=== PATIENT | male | born 1975 | race Caucasian/White ===

== ENCOUNTER 2017-06-17 13:17 | Inpatient (IN) | payer OTHER ==
[~2017-06-17] VITALS: Ht 172.7 cm; Wt 99.5 kg
[~2017-06-17 13:17] MED LIST: 1-ME1LIQ PO; ASPI325T PO; CIAL10TA PO; CO Q60CA2 PO; CYCL-36 PO; DICL1GEL TOP; DIOV320T PO; GABA300C3 PO; METH750T2 PO; PERC5TAB12 PO; PERC7.5T13 PO; PREDPOW70 PO; TAB-TAB PO; TACR0.5 PO; TEST200I13 IM; VIAG100T PO
[2017-06-17 13:18] VITALS: BP 218/95; PULSE 109; RESP 20; TEMP 99; O2SAT 95
[2017-06-17] MEDS ORDERED: SODIUM CHLOR 0.9% 1000 ML INJ 1,000 ML IV SCH ×2 (13:51→16:39)
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
[2017-06-17] MEDS ORDERED: ONDANSETRON HCL 4 MG/2 ML VIAL IVP ONE (14:00)
[2017-06-17] MEDS ORDERED: MORPHINE SULFATE 4 MG/ML INJ IV PUSH ONE (14:00)
[2017-06-17] MEDS ORDERED: SODIUM CHLORIDE 0.9% FLUSH 10 ML FLUSH IV FLUSH PRN ×3 (14:00→19:15)
[2017-06-17 14:12] VITALS: RESP 16; O2SAT 98
[2017-06-17] MEDS ORDERED: PRED5TAB PO (14:13)
[2017-06-17] MEDS ORDERED: VALS1TAB70 PO (14:13)
[2017-06-17] MEDS ORDERED: AMLO10TA2 PO (14:13)
[2017-06-17] MEDS ORDERED: TACR1CAP PO (14:13)
[2017-06-17] MEDS ORDERED: LORazepam 2 MG/ML VIAL IV PUSH ONE (14:15)
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
[2017-06-17 14:56] LABS: BASOPHIL % 0.2 % (0.0-2.0); EOSINOPHIL # 0.1 TH/MM3 (0-0.4); EOSINOPHIL % 0.7 % (0.0-4.0); HEMATOCRIT 44.2 % (39.0-51.0); HEMO FLAGS DIFF FINAL; LYMPH % 9.9 % (9.0-44.0); LYMPHOCYTE # 1.7 TH/MM3 (1.0-4.8); MEAN CELL VOLUME 84.7 FL (80.0-100.0); MEAN CORPUSCULAR HEMOGLOBIN 30.3 PG (27.0-34.0); MEAN CORPUSCULAR HGB CONC 35.7 % (32.0-36.0); MONO % 6.8 % (0.0-8.0); NEUT % 82.4 % (16.0-70.0); PLATELET COUNT 364 TH/MM3 (150-450); RED BLOOD COUNT 5.21 MIL/MM3 (4.50-5.90); RED CELL DISTRIBUTION WIDTH 14.4 % (11.6-17.2); WHITE BLOOD COUNT 16.9 TH/MM3 (4.0-11.0)
[2017-06-17 15:21] LABS: APTT (PATIENT) 25.7 SEC (24.3-30.1); PROTHROMBIN TIME - PATIENT 10.7 SEC (9.8-11.6)
[2017-06-17 15:41] LABS: BICARBONATE 25.3 MEQ/L (21.0-32.0)
[2017-06-17 15:42] LABS: POTASSIUM 5.3 MEQ/L (3.5-5.1)
[2017-06-17] MEDS ORDERED: oxyCODONE/ACETAMINOPHEN 10 MG/325 MG TAB PO ONE (15:45)
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
[2017-06-17 15:58] LABS: CKMB 19.9 NG/ML (0.5-3.6)
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
[2017-06-17 18:02] LABS: BLOOD, URINE MOD (NEG); COMMENT (UR) CULT NOT INDICATED; CULTURE IF INDICATED CULT NOT INDICATED; GLUCOSE,URINE NEG (NEG); KETONE, URINE NEG (NEG); NITRITE,URINE NEG (NEG); URINE COLOR LIGHT-YELLOW (YELLW/STRAW)
[2017-06-17] MEDS ORDERED: MAGNESIUM HYDROXIDE SUSP 30 ML CUP PO PRN (19:15)
[2017-06-17] MEDS ORDERED: BISACODYL 10 MG SUPP RECTAL PRN (19:15)
[2017-06-17] MEDS ORDERED: SENNOSIDES 8.6 MG TAB PO PRN (19:15)
[2017-06-17] MEDS ORDERED: ONDANSETRON HCL 4 MG/2 ML VIAL IVP PRN (19:15)
[2017-06-17] MEDS ORDERED: LACTULOSE SYRUP 20 GM/30 ML CUP PO PRN (19:15)
[2017-06-17] MEDS ORDERED: NALOXONE HCL 0.4 MG/ML AMP IV PUSH PRN (19:15)
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
[2017-06-17] MEDS ORDERED: SODIUM CHLORIDE 0.9% FLUSH 10 ML FLUSH IV FLUSH SCH (21:00)
[2017-06-17] MEDS: TACROLIMUS 1 MG CAP PO SCH (21:41)
[2017-06-17] MEDS: HEPARIN SODIUM - SQ 10,000 UNITS/ML VIAL SQ SCH (21:41)
[2017-06-17] MEDS: DOCUSATE SODIUM 50 MG/SENNA 8.6 MG TAB PO SCH (21:41)
[2017-06-17] MEDS: predniSONE 5 MG TAB PO SCH (21:42)
[2017-06-17] MEDS: SODIUM CHLORIDE 0.9% FLUSH 10 ML FLUSH IV FLUSH SCH (21:42)
[2017-06-17] MEDS ORDERED: oxyCODONE/ACETAMINOPHEN 5 MG/325 MG TAB PO PRN (22:15)
[2017-06-17] MEDS: oxyCODONE/ACETAMINOPHEN 10 MG/325 MG TAB PO PRN (22:54)
[2017-06-17] MEDS: SODIUM CHLOR 0.9% 1000 ML INJ 1,000 ML IV SCH (23:43)
[2017-06-17 23:49] LABS: BICARBONATE 27.5 MEQ/L (21.0-32.0); POTASSIUM 4.4 MEQ/L (3.5-5.1)
[2017-06-18] VITALS (7 sets, daily range): BP systolic 142–168; BP diastolic 75–99; PULSE 70–100; RESP 13–22; TEMP 97.2–98.1; O2SAT 94–96
[2017-06-18] MEDS ORDERED: CYCLOBENZAPRINE HCL 10 MG TAB PO ONE
[2017-06-18 00:15] LABS: CKMB 13.1 NG/ML (0.5-3.6)
[2017-06-18] MEDS ORDERED: cloNIDine HCL 0.1 MG TAB PO PRN (01:30)
[2017-06-18] MEDS: TACROLIMUS 1 MG CAP PO SCH ×2 (08:05→20:53)
[2017-06-18] MEDS: SODIUM CHLORIDE 0.9% FLUSH 10 ML FLUSH IV FLUSH SCH ×2 (08:05→20:54)
[2017-06-18] MEDS: DOCUSATE SODIUM 50 MG/SENNA 8.6 MG TAB PO SCH ×2 (08:05→20:53)
[2017-06-18] MEDS: predniSONE 5 MG TAB PO SCH (08:05)
[2017-06-18] MEDS: HEPARIN SODIUM - SQ 10,000 UNITS/ML VIAL SQ SCH ×2 (08:06→20:53)
[2017-06-18] MEDS: oxyCODONE/ACETAMINOPHEN 10 MG/325 MG TAB PO PRN ×2 (08:17→14:37)
[2017-06-18 09:22] LABS: ANION GAP 7 MEQ/L (5-15); AST (GOT) 96 U/L (15-37); BICARBONATE 24.8 MEQ/L (21.0-32.0); BLOOD UREA NITROGEN 31 MG/DL (7-18); CHLORIDE 105 MEQ/L (98-107); GLOMERULAR FILTRATION RATE 42 ML/MIN (>89); SODIUM (NA) 137 MEQ/L (136-145)
[2017-06-18 09:23] LABS: ALT (GPT) 84 U/L (12-78)
[2017-06-18 09:59] LABS: ALKALINE PHOSPHATASE 32 U/L (45-117); CREATINE KINASE 2927 U/L (39-308); TOTAL BILIRUBIN ADULT 0.6 MG/DL (0.2-1.0)
[2017-06-18] MEDS ORDERED: PNEUMOCOCCAL POLYVALENT INJ 25 MCG/0.5 ML SYR IM ONE (10:00)
[2017-06-18] MEDS ORDERED: INFLUENZA VIRUS VACCINE (QUADRIVALENT) 0.5 ML SYR IM ONE (10:00)
[2017-06-18 10:23] LABS: CKMB 9.3 NG/ML (0.5-3.6)
[2017-06-18] MEDS: SODIUM CHLOR 0.9% 1000 ML INJ 1,000 ML IV SCH ×2 (10:55→20:07)
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
[2017-06-18] MEDS ORDERED: OXYC1TAB36 PO ×2 (16:36→17:35)
--- NOTE | 2017-06-18 16:38 | HHI.DCPOC ---
Discharge Care Plan Diagnosis: (1) Rhabdomyolysis (2) Acute renal failure (3) Hyperkalemia (4) Hyponatremia (5) HTN (hypertension) Goals to Promote Your Health * To prevent worsening of your condition and complications * To maintain your health at the optimal level Directions to Meet Your Goals Take your medications as prescribed Follow your dietary instruction Follow activity as directed Keep your appointments as scheduled Take your immunizations and boosters as scheduled If your symptoms worsen call your PCP, if no PCP go to Urgent Care Center or Emergency Room Smoking is Dangerous to Your Health. Avoid second hand smoke Call the 24-hour hour crisis hotline for domestic abuse at Magalys Conley MD R2 Jun 18, 2017 16:38
--- NOTE | 2017-06-18 17:57 | RADRPT ---
EXAM DATE/TIME: 06/18/2017 16:25 [place] COMPARISON: CT HIP LEFT W/O CONTRAST, June 17, 2017, 17:43. FEMUR LEFT (AP & LAT/2VWS), June 17, 2017, 14: 49. INDICATIONS : Internal derangement. Evaluate for partial quadricep rupture. MEDICAL HISTORY : Renal insufficiency. SURGICAL HISTORY : Kidney transplant. Liver cancer removed. ENCOUNTER: Subsequent ACUITY: 1 day PAIN SCORE: 5/10 LOCATION: Left thigh. TECHNIQUE: Multiplanar multisequence MRI examination of the thigh was performed without contrast. FINDINGS: The examination was performed to characterize and abnormality seen on CT left hip with some mild frag mentation adjacent to the lateral acetabulum. The MRI demonstrates a well-circumscribed fluid collec tion measuring 3.3 cm located adjacent to the lateral acetabulum and femoral head. This is located a t the rectus femoris attachment. The tendon appears to be intact. There is some induration and flui d tracking along the gluteus minimus muscle and along the soft tissues of the lateral proximal thigh. There is also some mild T2 prolongation in the marrow of the lateral supra-acetabular region. The femoral head and neck is normal in configuration. The shaft of the femur is grossly intact. The re is a 10 mm on the excrescence arising from the cortex of the proximal one third shaft of the femur . This correlates with a ossific density seen on conventional radiographs and signal characteristics demonstrate fat signal suggesting this represents heterotopic ossification. CONCLUSION: 1. Large cystic area at the insertion of the rectus femoris tendon to the pelvis suggests partial tea r of the tendon. 2. Focal 1 cm area of heterotopic ossification adjacent to the cortex of the proximal midshaft of the femur containing marrow. Ramesh Molina MD on June 18, 2017 at 17:45 Board Certified Radiologist. This report was verified electronically.
--- NOTE | 2017-06-18 18:40 | EKG ---
Date Performed: 06/17/2017 Time Performed: 20:05:50 PTAGE: 42 years EKG: Sinus rhythm ST ELEVATION, PROBABLY EARLY REPOLARIZATION ST DEVIATION AND MODERATE T-WAVE ABNORMALITY, CONSIDER I NFERIOR ISCHEMIA SINCE THE PRIOR TRACING THE LATERAL ST ELEVATION IS NEW, AND THE INFERIOR ST DEPRESS ION IS NEW. THE TRACING IS SUSPICIOUS FOR A LATERAL ST SEGMENT ELEVATION INFARCT. Clinical correlatio n is recommended ABNORMAL ECG PREVIOUS TRACING : 10/27/2010 17.18 DOCTOR: Rosario Orozco Interpretating Date/Time 06/18/2017 18:39:54
[2017-06-18] MEDS ORDERED: oxyCODONE/ACETAMINOPHEN 5 MG/325 MG TAB PO PRN (18:45)
[2017-06-18] MEDS ORDERED: MORPHINE SULFATE 4 MG/ML INJ IV PUSH STA (20:38)
--- NOTE | 2017-06-18 20:59 | HHI.FPPN ---
Addendum to progress note ADDENDUM Reason for addendum: Additonal documentation Additional information S:Residents paged around 20:15 by nurse stating pt was complaining of increased pain. Nurse also stated pt was tachycardic, hypertensive and diaphoretic. Lasted VS at 19:14 (HR-98, BP- 168/99). Pt seen and examined at bedside by resident team. Pt stated he has throbbing pain starting at Left hip and radiating down leg, similar to initial pain when he came to the ED. He stated the pain flared up after the MRI of LE was done. Of note pt received percocet 5mg Q4H PRN for pain at 18:45. O: GEN: Pt appeared to be in obvious pain and discomfort, diaphoretic. Cardio: tachycardic, Normal s1 and s2. no m/g/r. Resp: CTA BL A/P Increased Left thigh pain, flared after MRI most likely due to positing during MRI -morphine 4mg IV x 1 stat and ice pack ordered for breakthrough pain control -c/w with current pain management regimen percocet 5mg po Q4H PRN (pain 1-4) and percocet 10mg po Q6h PRN (pain 5-10) Herminio Hannah MD, R1 Jun 18, 2017 20:59
[2017-06-19 00:30] VITALS: BP 173/95; PULSE 81; RESP 20; TEMP 97.3; O2SAT 95
[2017-06-19] MEDS: SODIUM CHLOR 0.9% 1000 ML INJ 1,000 ML IV SCH ×3 (00:35→06:40)
[2017-06-19] MEDS: oxyCODONE/ACETAMINOPHEN 10 MG/325 MG TAB PO PRN ×2 (00:35→06:26)
[2017-06-19 04:10] VITALS: BP 163/97; PULSE 79; RESP 20; TEMP 97.7; O2SAT 94
[2017-06-19] MEDS ORDERED: oxyCODONE/ACETAMINOPHEN 10 MG/325 MG TAB PO PRN (07:15)
[2017-06-19 07:17] LABS: AUTOMATED NEUTROPHIL # 5.9 TH/MM3 (1.8-7.7); BASOPHIL % 0.4 % (0.0-2.0); EOSINOPHIL # 0.3 TH/MM3 (0-0.4); EOSINOPHIL % 3.1 % (0.0-4.0); HEMATOCRIT 43.5 % (39.0-51.0); HEMO FLAGS DIFF FINAL; LYMPH % 19.1 % (9.0-44.0); LYMPHOCYTE # 1.7 TH/MM3 (1.0-4.8); MEAN CELL VOLUME 86.1 FL (80.0-100.0); MEAN CORPUSCULAR HEMOGLOBIN 29.4 PG (27.0-34.0); MEAN CORPUSCULAR HGB CONC 34.2 % (32.0-36.0); MONO % 10.8 % (0.0-8.0); NEUT % 66.6 % (16.0-70.0); PLATELET COUNT 306 TH/MM3 (150-450); RED BLOOD COUNT 5.05 MIL/MM3 (4.50-5.90); WHITE BLOOD COUNT 8.9 TH/MM3 (4.0-11.0)
[2017-06-19 07:34] VITALS: BP 179/98; PULSE 82; RESP 19; TEMP 97.9; O2SAT 96
[2017-06-19 07:48] LABS: ANION GAP 9 MEQ/L (5-15); AST (GOT) 89 U/L (15-37); BICARBONATE 26.5 MEQ/L (21.0-32.0); BLOOD UREA NITROGEN 27 MG/DL (7-18); CHLORIDE 104 MEQ/L (98-107); GLOMERULAR FILTRATION RATE 48 ML/MIN (>89); POTASSIUM 4.3 MEQ/L (3.5-5.1); SODIUM (NA) 139 MEQ/L (136-145)
[2017-06-19 07:49] LABS: ALT (GPT) 91 U/L (12-78)
[2017-06-19 07:52] LABS: ALKALINE PHOSPHATASE 34 U/L (45-117); TOTAL BILIRUBIN ADULT 0.6 MG/DL (0.2-1.0)
--- NOTE | 2017-06-19 08:41 | HHI.FPPN ---
Subjective Remarks Patient was seen and examined this morning. PO hydration without incident. No new complaints. He had an episode of increased pain on the left lateral extremity after MRI yesterday evening, relieved with morphine x 1 and PRN Percocet. No recurrences and patient is agreeable to go home today. He is aware of the need to rest and is given tendonitis treatment handout. MRI showing possible biceps femoris tear discussed in detail with patient and report given to him. (Magalys Conley MD R2) Objective Vitals Vital Signs Date Time Temp Pulse Resp B/P (MAP) Pulse Ox O2 Delivery O2 Flow Rate FiO2 06/19/17 07:34 97.9 82 19 179/98 (125) 96 06/19/17 04:10 97.7 79 20 163/97 (119) 94 06/19/17 00:30 97.3 81 20 173/95 (121) 95 06/18/17 20:59 22 06/18/17 19:59 22 06/18/17 19:14 97.7 98 22 168/99 (122) 96 06/18/17 15:15 97.2 83 13 163/94 (117) 95 06/18/17 11:24 98.1 90 18 142/75 (97) 95 I/O 06/18/17 06/18/17 06/18/17 06/19/17 06/19/17 06/19/17 07:00 15:00 23:00 07:00 15:00 23:00 Intake Total 2477 ml 807 ml 2456 ml Output Total 1175 ml 1450 ml 4500 ml Balance -1175 ml 1027 ml 807 ml -2044 ml Intake Oral 720 ml 1020 ml IV Total 2477 ml 87 ml 1436 ml Output Urine Total 1175 ml 1450 ml 4500 ml # Voids 6 2 # Bowel Movements 0 0 0 (Magalys Conley MD R2) Result Diagram: 06/19/17 0622 06/19/17 06 Imaging Last Impressions Lower Extremity MRI 06/18/17 0000 Signed Impressions: Service Date/Time: May 16:25 - CONCLUSION: 1. Large cystic area at the insertion of the rectus femoris tendon to the pelvis suggests partial tear of the tendon. 2. Focal 1 cm area of heterotopic ossification adjacent to the cortex of the proximal midshaft of the femur containing marrow. Ramesh Molina MD Hip and Pelvis X-Ray 06/17/17 1351 Signed Impressions: Service Date/Time: Saturday, June 17, 2017 14:49 - CONCLUSION: 1. Degenerative osteoarthritic changes of the left hip with some loss of joint space superiorly. 2. Spur versus nondisplaced fracture through the subcapital portion of the left femoral head. CT scan of the left hip is recommended for further characterization. 3. Spina bifida occulta of L5. Ty Mccracken MD Femur X-Ray 06/17/17 1351 Signed Impressions: Service Date/Time: Saturday, June 17, 2017 14:49 - CONCLUSION: No evidence of recent bone injury. Ramesh Molina MD Lower Extremity Ultrasound 06/17/17 0000 Signed Impressions: Service Date/Time: Saturday, June 17, 2017 14:52 - CONCLUSION: Multiple adjacent low hypoechoic areas in the soft tissues between subcutaneous fat and muscle and lateral thigh measuring up to 3 cm without increased flow. Fluid collections, abscess, or hematoma at this appearance. The absence of increased flow makes abscess less likely. Ramesh Molina MD Lower Extremity CT 06/17/17 0000 Signed Impressions: Service Date/Time: Saturday, June 17, 2017 17:43 - CONCLUSION: Severe arthritic changes in the left hip. Small joint effusion. Mild fragmentation adjacent to the lateral acetabulum. Acute symptomatology may reflect acute on chronic injury in the region of the rectus femoris attachment. Further evaluation with MRI on elective basis maybe beneficial Gabriel Posada MD Objective Remarks GENERAL: Well-nourished muscular male lying in bed in no apparent distress. SKIN: Warm and dry. Noted to have multiple tattoos. HEAD: Atraumatic. Normocephalic. EYES: Pupils equal and round. No scleral icterus. No injection or drainage. ENT: No nasal bleeding or discharge. Mucous membranes pink and moist. NECK: Trachea midline. No JVD. CARDIOVASCULAR: Regular rate and rhythm. No murmurs, gallops, rubs RESPIRATORY: No accessory muscle use. Clear to auscultation. Breath sounds equal bilaterally. GASTROINTESTINAL: Abdomen soft, non-tender, nondistended. Hepatic and splenic margins not palpable. Surgical scar across midabdomen MUSCULOSKELETAL: Extremities without clubbing, cyanosis, or edema. No obvious deformities. Left leg: Dense tissue 3x3cm on left lateral quadricep. Multiple ecchymoses on left quadricep which are noted to be improving. Pain on flexion past 90 degrees and internal rotation. tenderness along lateral aspect of upper thigh. Strength 5/5 NEUROLOGICAL: Awake and alert. No obvious cranial nerve deficits. Motor grossly within normal limits. Five out of 5 muscle strength in the arms and legs. Normal speech. PSYCHIATRIC: Appropriate mood and affect; insight and judgment normal. Medications and IVs Inpatient Medications Amlodipine Besylate (Norvasc) 10 mg DAILY PO Last administered on 06/18/17 08 :05; Start 06/17/17 at 19:30 Bisacodyl (Dulcolax Supp) 10 mg DAILY PRN RECTAL SEVERE CONSITIPATION; Start 06/17/17 at 19:15 Clonidine (Catapres) 0.1 mg Q6H PRN PO SBP> OR = 180, DBP> OR = 100 Last administered on 06/18/17 01:35; Start 06/18/17 at 01:30 Cyclobenzaprine HCl (Flexeril) 15 mg ONCE ONCE PO Last administered on 00:10; Start 06/18/17 at 00:00; Stop 06/18/17 at 00:01; Status DC Heparin Sodium (Porcine) (Heparin Inj) 5,000 units Q12H SQ Last administered on 06/18/17 20:53; Start 06/17/17 at 21:00 Influenza Virus Vaccine (Flu (Quadrivalent) Vaccine Inj) 0.5 ml ONCE ONCE IM Last administered on 06/18/17 08:22; Start 06/18/17 at 10:00; Stop 06/18/17 at 10:01; Status DC Lactulose (Lactulose Liq) 30 ml DAILY PRN PO SEVERE CONSITIPATION; Start 06/17 at 19:15 Lorazepam (Ativan Inj) 2 mg ONCE ONCE IV PUSH Last administered on 06/17/17 14:31; Start 06/17/17 at 14:15; Stop 06/17/17 at 14:16; Status DC Magnesium Hydroxide (Milk Of Magnesia Liq) 30 ml Q12H PRN PO Mild constipation ; Start 06/17/17 at 19:15 Morphine Sulfate (Morphine Inj) 4 mg ONCE STAT IV PUSH Last administered on 20:54; Start 06/18/17 at 20:38; Stop 06/18/17 at 20:46; Status DC Naloxone HCl (Narcan Inj) 0.4 mg UNSCH PRN IV PUSH SEE LABEL COMMENTS; Start 06/17/17 at 19:15 Ondansetron HCl (Zofran Inj) 4 mg Q6H PRN IVP NAUSEA OR VOMITING; Start at 19:15 Oxycodone/ Acetaminophen (Percocet 5-325 Mg) 1 tab Q4H PRN PO PAIN SCALE 1 TO 4 Last administered on 06/18/17 18:59; Start 06/18/17 at 18:45 Oxycodone/ Acetaminophen (Percocet 10-325 Mg) 1 tab Q4H PRN PO PAIN SCALE 5 TO 10; Start 06/19/17 at 07:15 Pneumococcal Polyvalent Vaccine (Pneumovax-23 Inj) 25 mcg ONCE ONCE IM Last administered on 06/18/17 08:24; Start 06/18/17 at 10:00; Stop 06/18/17 at 10 :01; Status DC Prednisone (Deltasone) 5 mg DAILY PO Last administered on 06/18/17 08:05; Start 06/17/17 at 19:30 Senna/Docusate Sodium (Heena-Colace) 1 tab BID PO Last administered on 20:53; Start 06/17/17 at 21:00 Sennosides (Senokot) 17.2 mg Q12H PRN PO Moderate constipation; Start at 19:15 Sodium Chloride (NS Flush) 2 ml BID IV FLUSH Last administered on 06/18/17 20 :54; Start 06/17/17 at 21:00 Tacrolimus (Prograf) 1 mg BID PO Last administered on 06/18/17 20:53; Start 06/17/17 at 21:00 (Magalys Conley MD R2) Urinary Catheter: No (Magalys Conley MD R2) Vascular Central Line Catheter: No (Magalys Conley MD R2) A/P Assessment and Plan 42yoWM with a past medical history of liver cancer status post hepatectomy and kidney transplant presenting with left leg pain. Labs shows highly increased CK with likely diagnosis rhabdomyolysis, improving. Creatinine is also increased to 2.36 on admission. Acute kidney injury and rhabdomyolysis resolving Discharge Planning Patient to be discharged home today. He is given a short term prescription for Percocet. His follow-up with PCP in 1-2 weeks to discuss further kidney surveillance and physical therapy for the hip (Magalys Conley MD R2) Attending Attestation Patient seen and examined. Case reviewed and discussed with the resident team. Agree with plan of care as discussed with me and documented in the resident note. (Shawna Valle MD) Problem List: (1) Rhabdomyolysis ICD Codes: M62.82 - Rhabdomyolysis Status: Acute Plan: Pt who body builds on a daily basis. CK increased to 5948 on admission, downtrending. * Aggressive IVF at 1.5 maintenance, counseled on aggressive by mouth hydration at home (2) Left leg pain ICD Codes: M79.605 - Pain in left leg Status: Acute Plan: Likely tendinitis or partial tendon rupture of the biceps femoris tendon. This is based on MRI obtained 06/18. MRI showed heterotopic ossification of the femur as well. He was counseled to continue conservative therapy at home to include rest, ice, compression if indicated. He is also counseled that he will need physical therapy and outpatient physical therapy was ordered this hospital stay but he is made aware that depending on insurance he may need referral to his PCP. Hospital course: Patient presented with left leg pain that started 6 days prior to admission after working out on glute machine at the gym. There are multiple ecchymoses and a dense mass on his left quadriceps. May be due to Tendon rupture vs hematoma vs muscle tear CT: Severe arthritic changes in the left hip. Small joint effusion. Mild fragmentation adjacent to the lateral acetabulum. There is mild edema or hematoma in the soft tissues anterior and lateral to the left hip. Acute symptomatology may reflect acute on chronic injury in the region of the rectus femoris attachment. MRI: Further evaluation with MRI showing possible partial tear of the biceps femoris tendon at glute insertion. (3) Hyperkalemia ICD Codes: E87.5 - Hyperkalemia Status: Resolved Plan: (4) Hyponatremia ICD Codes: E87.1 - Hypo-osmolality and hyponatremia Status: Resolved (5) History of renal transplant ICD Codes: Z94.0 - History of renal transplant Status: Chronic Plan: * Continue at home immunosuppressant medications * IVF and encourage increasing by mouth fluids (6) HTN (hypertension) ICD Codes: I10 - HTN (hypertension) Status: Chronic Plan: Continue at home medications (7) FEN Status: Acute Plan: Fluids: PO hydration Electrolytes: See above, monitor and replete as needed Nutrition: regular diet DVT Prophylaxis: Ambulation GI Prophylaxis: PRNs Pain mgmt: Percocet PRN (Magalys Conley MD R2) Problem Qualifiers (1) Rhabdomyolysis: Qualified Codes: T79.6XXD - Traumatic ischemia of muscle, subsequent encounter Magalys Conley MD R2 Jun 19, 2017 08:41 Shawna Valle MD Jun 19, 2017 11:26
[2017-06-19] MEDS: SODIUM CHLORIDE 0.9% FLUSH 10 ML FLUSH IV FLUSH SCH (09:40)
[2017-06-19] MEDS: predniSONE 5 MG TAB PO SCH (09:40)
[2017-06-19] MEDS: HEPARIN SODIUM - SQ 10,000 UNITS/ML VIAL SQ SCH (09:40)
[2017-06-19] MEDS: TACROLIMUS 1 MG CAP PO SCH (09:40)
[2017-06-19] MEDS: DOCUSATE SODIUM 50 MG/SENNA 8.6 MG TAB PO SCH (09:40)
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
== END 2017-06-19 12:10 | disposition home or self-care (01) | DRG 558 ==
LOC: NEPD 13:17 → NEDA 17:12 → N06B 18:03
PROVIDERS: ADMIT Family Medicine; ATTEND Family Medicine
DX: M62.82 Rhabdomyolysis (principal); N17.9 Acute kidney failure, unspecified; E87.1 Hypo-osmolality and hyponatremia; Z94.0 Kidney transplant status; Z85.05 Personal history of malignant neoplasm of liver; E87.5 Hyperkalemia; I10 Essential (primary) hypertension; M76.892 Other specified enthesopathies of left lower limb, excluding foot; M16.12 Unilateral primary osteoarthritis, left hip; Z79.899 Other long term (current) drug therapy; F12.90 Cannabis use, unspecified, uncomplicated; Z23 Encounter for immunization
CPT/HCPCS: 73502; 73552; 73700; 73718; 76882; 80048; 80053; 80307; 81001; 82550; 82552; 83735; 84100; 85025; 85610; 85730; 90471; 90472; 90686; 90732; 93005; 96361; 96374; 96375; G0008; G0009; J1644; J2060; J2270; J2405; J7030; J7507; J7512; Q2038

== ENCOUNTER 2017-10-21 12:13 | Emergency (ER) | payer OTHER ==
[~2017-10-21] VITALS: Ht 172.7 cm; Wt 104.0 kg
[~2017-10-21 12:13] MED LIST changes: -1-ME1LIQ PO; +AMLO10TA2 PO; -ASPI325T PO; -CIAL10TA PO; -CO Q60CA2 PO; -CYCL-36 PO; -DICL1GEL TOP; -DIOV320T PO; -GABA300C3 PO; -METH750T2 PO; +OXYC1TAB36 PO; -PERC5TAB12 PO; -PERC7.5T13 PO; +PRED5TAB PO; -PREDPOW70 PO; -TAB-TAB PO; -TACR0.5 PO; +TACR1CAP PO; -TEST200I13 IM; +VALS1TAB70 PO; -VIAG100T PO
[2017-10-21 12:22] VITALS: BP 184/104; PULSE 97; RESP 16; TEMP 98.2; O2SAT 97
[2017-10-21 12:51] LABS: BASOPHIL % 0.3 % (0.0-2.0); EOSINOPHIL # 0.1 TH/MM3 (0-0.4); EOSINOPHIL % 0.8 % (0.0-4.0); HEMATOCRIT 46.8 % (39.0-51.0); HEMOGLOBIN 16.3 GM/DL (13.0-17.0); LYMPH % 17.2 % (9.0-44.0); LYMPHOCYTE # 1.8 TH/MM3 (1.0-4.8); MEAN CELL VOLUME 85.6 FL (80.0-100.0); MEAN CORPUSCULAR HEMOGLOBIN 29.8 PG (27.0-34.0); MEAN CORPUSCULAR HGB CONC 34.8 % (32.0-36.0); MEAN PLATELET VOLUME 7.6 FL (7.0-11.0); MONOCYTE # 0.6 TH/MM3 (0-0.9); NEUT % 75.7 % (16.0-70.0); PLATELET COUNT 349 TH/MM3 (150-450); RED BLOOD COUNT 5.46 MIL/MM3 (4.50-5.90); WHITE BLOOD COUNT 10.6 TH/MM3 (4.0-11.0)
[2017-10-21 13:08] LABS: BICARBONATE 26.6 MEQ/L (21.0-32.0); CALCIUM 9.3 MG/DL (8.5-10.1); CREATININE 2.34 MG/DL (0.60-1.30)
--- NOTE | 2017-10-21 13:16 | RADRPT ---
EXAM DATE/TIME: 10/21/2017 12:54 [facility] COMPARISON: No previous studies available for comparison. INDICATIONS : Chest pain. MEDICAL HISTORY : sub angioplasty SURGICAL HISTORY : right side kidney transplant, hepectomy. ENCOUNTER: Initial ACUITY: 2 days PAIN SCORE: 10/10 LOCATION: Bilateral chest FINDINGS: PA and lateral views of the chest demonstrate a normal-sized cardiac silhouette. There is no effusion , consolidation, or pneumothorax. The bones and soft tissues demonstrate no acute abnormality. There are degenerative changes of the thoracic spine. CONCLUSION: No acute cardiopulmonary abnormality is identified. Gabriel Gomez MD on October 21, 2017 at 13:14 Board Certified Radiologist. This report was verified electronically.
[2017-10-21 13:22] VITALS: BP 166/87; PULSE 84; RESP 22; O2SAT 95
[2017-10-21] MEDS ORDERED: SODIUM CHLOR 0.9% 1000 ML INJ 1,000 ML IV SCH (13:28)
[2017-10-21 13:30] LABS: TROPONIN I 0.04 NG/ML (0.02-0.05)
[2017-10-21] MEDS ORDERED: DEXAMETHASONE SOD PHOS 20 MG/5 ML VIAL IV PUSH ONE (13:30)
[2017-10-21] MEDS ORDERED: SODIUM CHLORIDE 0.9% FLUSH 10 ML FLUSH IV FLUSH PRN (13:30)
--- NOTE | 2017-10-21 13:39 | PD ---
HPI Chief Complaint: Allergic/Adverse Reaction Time Seen by Provider: 13:15 Travel History International Travel<30 days: No Contact w/Intl Traveler<30days: No Traveled to known affect area: No History of Present Illness HPI 42-year-old male status post renal transplant 2009, presents emergency department with generalized itching, similar to when he eats seafood which she has an allergy to. Patient states recent insect bite to the left posterior calf proximally 5 days ago. Since that time he has had intermittent spells of itchiness, feeling flushed, and occasional chest discomfort. 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 Patient denies difficulty swallowing , but has generalized itching mainly in the neck and throat. Patient denies cough or wheezing or shortness of breath. Patient has been taking tacrolimus for his kidney transplant as well as 5 mg prednisone daily. Patient tried some [id number] Benadryl and Claritin which gave transient relief. Patient denies fever, chills, or other symptoms. Patient is allergic to bees, codeine, niacin, and shellfish. PFSH Past Medical History Arthritis: No Asthma: Yes (COLD INDUCED) Autoimmune Disease: No Blood Disorders: No Anxiety: Yes Depression: No Heart Rhythm Problems: No Cancer: Yes (LIVER) Cardiac Catheterization: Yes Cardiovascular Problems: Yes High Cholesterol: No Chemotherapy: No Chest Pain: No Congestive Heart Failure: No COPD: No Cerebrovascular Accident: No Diabetes: No Dialysis: Yes (Hemodialysis Hx ) Diminished Hearing: No Endocrine: No Gastrointestinal Disorders: Yes GERD: No Glaucoma: No Genitourinary: Yes Headaches: No Hepatitis: No Hiatal Hernia: No Hypertension: Yes Immune Disorder: No Kidney Stones: No Musculoskeletal: No Neurologic: Yes Psychiatric: Yes (CLAUSTRAPHOBIA) Reproductive: No Respiratory: Yes (bronchitis , PNEUMONIA 09/01/10) Immunizations Current: No Migraines: No Myocardial Infarction: No Radiation Therapy: No Renal Failure: Yes Seizures: No Sickle Cell Disease: No Sleep Apnea: No Thyroid Disease: No Ulcer: No Past Surgical History Abdominal Surgery: No Appendectomy: No Cardiac Surgery: Yes Cholecystectomy: No Ear Surgery: No Endocrine Surgery: No Eye Surgery: No Gynecologic Surgery: No Oral Surgery: Yes (T & A) Pacemaker: No Thoracic Surgery: No Tonsillectomy: Yes Other Surgery: Yes (LT SUBCLAVIAN ANGIOPLASTY PORT OCCLUSION) Social History Alcohol Use: Yes (ONCE A WEEK) Tobacco Use: No Substance Use: No Allergies-Medications (Allergen,Severity, Reaction): Coded Allergies: niacin (Unverified Allergy, Severe, Hives, 10/21/17) shellfish derived (Unverified Allergy, Severe, SOB, 10/21/17) bee venom protein (honey bee) (Unverified Allergy, Intermediate, Swelling , 10/21/17) codeine (Unverified Allergy, Unknown, Itching, 10/21/17) ITCH Uncoded Allergies: PT STS "HE CAN TAKE LORTAB" (Allergy, Mild, 05/01/09) Reported Meds & Prescriptions Reported Meds & Active Scripts Active Diphenhydramine (Diphenhydramine HCl) 25 Mg Cap 25 Mg PO Q6H PRN Pepcid (Famotidine) 40 Mg Tab 40 Mg PO BID Oxycodone-Acetaminophen 10-325 mg Tab 1 Tab PO Q6H PRN Reported Amlodipine (Amlodipine Besylate) 10 Mg Tab 5 Mg PO DAILY Prednisone 5 Mg Tab 5 Mg PO DAILY Valsartan 320 Mg Tab 320 Mg PO DAILY Tacrolimus 1 Mg Cap 1 Mg PO BID Review of Systems Except as stated in HPI: all other systems reviewed are Neg General / Constitutional: No: Fever Eyes: No: Visual changes HENT: No: Headaches Cardiovascular: No: Chest Pain or Discomfort Respiratory: No: Shortness of Breath Gastrointestinal: No: Abdominal Pain Genitourinary: No: Dysuria Musculoskeletal: No: Pain Skin: Positive Itching, Positive Lesions (Insect bite posterior left calf), No Rash Neurologic: No: Weakness Psychiatric: No: Depression Endocrine: No: Polydipsia Hematologic/Lymphatic: No: Easy Bruising Physical Exam Narrative GENERAL: Patient appears in no acute distress per SKIN: Warm and dry. Normal color. Normal turgor. Patient has obvious insect bite to the left calf with localized induration and swelling without erythema. There is a small amount of ecchymosis noted. HEAD: Atraumatic. Normocephalic. EYES: Pupils equal and round. No scleral icterus. No injection or drainage. ENT: No nasal bleeding or discharge. Mucous membranes pink and moist. Pharynx is clear. Tongue is normal. Uvula is midline. No significant swelling is noted. Airway is patent. NECK: Trachea midline. Supple and nontender. CARDIOVASCULAR: Regular rate and rhythm. No murmurs gallops or rubs. RESPIRATORY: No accessory muscle use. Clear to auscultation. Breath sounds equal bilaterally. GASTROINTESTINAL: Abdomen soft, non-tender, nondistended. Hepatic and splenic margins not palpable. MUSCULOSKELETAL: Extremities without clubbing, cyanosis, or edema. No obvious deformities. No calf tenderness or signs of DVT in the left leg. NEUROLOGICAL: Awake and alert. No obvious cranial nerve deficits. Motor grossly within normal limits. Five out of 5 muscle strength in the arms and legs. Normal speech. PSYCHIATRIC: Appropriate mood and affect; insight and judgment normal. Data Data Last Documented VS Vital Signs Date Time Temp Pulse Resp B/P (MAP) Pulse Ox O2 Delivery O2 Flow Rate FiO2 10/21/17 15:13 84 22 168/109 (128) 97 Room Air 10/21/17 12:22 98.2 Orders Orders Electrocardiogram (10/21/17 12:27) Complete Blood Count With Diff (10/21/17 12:27) Basic Metabolic Panel (Bmp) (10/21/17 12:27) Ckmb (Isoenzyme) Profile (10/21/17 12:27) Troponin I (10/21/17 12:27) Chest, Pa & Lat (10/21/17 12:27) Iv Access Insert/Monitor (10/21/17 13:28) Ecg Monitoring (10/21/17 13:28) Oximetry (10/21/17 13:28) Sodium Chlor 0.9% 1000 Ml Inj (Ns 1000 M (10/21/17 13:28) Sodium Chloride 0.9% Flush (Ns Flush) (10/21/17 13:30) Dexamethasone Inj (Decadron Inj) (10/21/17 13:30) CKMB (10/21/17 12:38) CKMB% (10/21/17 12:38) Us Kidney / Transplant (10/21/17 13:45) Diphenhydramine Inj (Benadryl Inj) (10/21/17 15:15) Famotidine Inj (Pepcid Inj) (10/21/17 15:15) Diphenhydramine Inj (Benadryl Inj) (10/21/17 15:30) Labs Laboratory Tests Test 10/21/17 12:38 White Blood Count 10.6 TH/MM3 Red Blood Count 5.46 MIL/MM3 Hemoglobin 16.3 GM/DL Hematocrit 46.8 % Mean Corpuscular Volume 85.6 FL Mean Corpuscular Hemoglobin 29.8 PG Mean Corpuscular Hemoglobin Concent 34.8 % Red Cell Distribution Width 14.0 % Platelet Count 349 TH/MM3 Mean Platelet Volume 7.6 FL Neutrophils (%) (Auto) 75.7 % Lymphocytes (%) (Auto) 17.2 % Monocytes (%) (Auto) 6.0 % Eosinophils (%) (Auto) 0.8 % Basophils (%) (Auto) 0.3 % Neutrophils # (Auto) 8.0 TH/MM3 Lymphocytes # (Auto) 1.8 TH/MM3 Monocytes # (Auto) 0.6 TH/MM3 Eosinophils # (Auto) 0.1 TH/MM3 Basophils # (Auto) 0.0 TH/MM3 CBC Comment DIFF FINAL Differential Comment Blood Urea Nitrogen 27 MG/DL Creatinine 2.34 MG/DL Random Glucose 109 MG/DL Calcium Level 9.3 MG/DL Sodium Level 135 MEQ/L Potassium Level 5.0 MEQ/L Chloride Level 102 MEQ/L Carbon Dioxide Level 26.6 MEQ/L Anion Gap 6 MEQ/L Estimat Glomerular Filtration Rate 31 ML/MIN Total Creatine Kinase 1279 U/L Creatine Kinase MB 6.0 NG/ML Creatine Kinase MB % 0.5 % Troponin I 0.04 NG/ML [facility] Medical Decision Making Medical Screen Exam Complete: Yes Emergency Medical Condition: Yes Medical Record Reviewed: Yes Differential Diagnosis Insect bite. Allergic reaction. Elevated creatinine. Electrolyte imbalance. Pruritus. Narrative Course Patient is medically stable at time of exam. EKG shows normal sinus rhythm with possible left atrial enlargement, but without signs of acute ND. This is reviewed with Dr. Newton. Labs ordered including CBC, CMP, as well as troponin and CK-MB and creatinine kinase. CBC is unremarkable. CMP significant for sodium 139, BUN is 27, creatinine is elevated at 2.34. This is up from the patient's baseline of 1.8. Troponin is slightly elevated at 0.04, which would be expected with his creatinine. Total creatinine kinase is 1279, with a CK-MB index of 6.0 and a CK-MB percent of 0.5. Results discussed with Dr. Newton. Calls placed to the patient's carry out clerk and shelf stocker, Dr. Crow, and findings are discussed. He requested a renal transplant ultrasound, recommended fluids, and steroids. Patient is given 1000 mL of normal saline bolus. Patient was given 10 mg Decadron IV. Patient is given 50 mg diphenhydramine IV, as well as 20 mg Pepcid IV. Renal ultrasound shows a normal-appearing transplanted kidney. Dr. Crow also recommended repeating his creatinine in 2 days, push fluids, and recommended tacrolimus trough tomorrow. Patient to continue on prednisone 30 mg daily for the next 5 days. Patient to continue Pepcid 40 mg twice daily #60. Patient is given diphenhydramine 25 mg every 6 hours #30. Patient to follow-up with Dr. Crow. Patient can return to the emergency department if symptoms worsen. Diagnosis Primary Impression: Insect sting allergy, current reaction Qualified Codes: T63.481A - Toxic effect of venom of other arthropod, accidental (unintentional), initial encounter Patient Instructions: General Instructions Additional Instructions: Calls placed to the patient's carry out clerk and shelf stocker, Dr. Crow, and findings are discussed. He requested a renal transplant ultrasound, recommended fluids, and steroids. Patient is given 1000 mL of normal saline bolus. Patient was given 10 mg Decadron IV. Patient is given 50 mg diphenhydramine IV, as well as 20 mg Pepcid IV. Renal ultrasound shows a normal-appearing transplanted kidney. Dr. Crow also recommended repeating his creatinine in 2 days, push fluids, and recommended tacrolimus trough tomorrow. Patient to continue on prednisone 30 mg daily for the next 5 days. Patient to continue Pepcid 40 mg twice daily #60. Patient is given diphenhydramine 25 mg every 6 hours #30. Patient to follow-up with Dr. Crow. Patient can return to the emergency department if symptoms worsen. Scripts Diphenhydramine (Diphenhydramine) 25 Mg Cap 25 MG PO Q6H Y for ALLERGIES, #30 CAP 0 Refills Prov: Ruben Newton MD 10/21/17 Famotidine (Pepcid) 40 Mg Tab 40 MG PO BID, #60 TAB 0 Refills Prov: Ruben Newton MD 10/21/17 Disposition: 01 DISCHARGE HOME Condition: Stable Ravinder Ibanez Oct 21, 2017 13:38
[2017-10-21 13:55] VITALS: O2SAT 95
[2017-10-21 15:13] VITALS: BP 168/109; PULSE 84; RESP 22; O2SAT 97
[2017-10-21] MEDS ORDERED: FAMO1TAB73 PO (15:13)
[2017-10-21] MEDS ORDERED: DIPH25CA PO (15:13)
[2017-10-21] MEDS ORDERED: FAMOTIDINE 20 MG/2 ML VIAL IV PUSH ONE (15:15)
[2017-10-21] MEDS ORDERED: diphenhydrAMINE HCL 50 MG/ML VIAL IM ONE (15:15)
[2017-10-21] MEDS ORDERED: diphenhydrAMINE HCL 50 MG/ML VIAL IV PUSH ONE (15:30)
--- NOTE | 2017-10-21 15:41 | RADRPT ---
EXAM DATE/TIME: 10/21/2017 14:05 [facility] COMPARISON: No previous studies available for comparison. INDICATIONS : Elevated labs. MEDICAL HISTORY : Hypertension. Liver cancer. Kidney disease. Numbness in right leg and penis. Dialysis. Bronchitis . Pneumonia. SURGICAL HISTORY : Transplant kidney. Hemodialysis. Cardiac disorder. Left subclavian angioplasty port occlussion. ENCOUNTER: Initial ACUITY: 1 day PAIN SCORE: 0/10 LOCATION: Right lower quadrant MEASUREMENTS: TRANSPLANT KIDNEY: 12.9 x 8.8 x 6.7 cm LOCATION: Right lower quadrant. ARCUATE ARTERIES RESISTIVE INDEX: Upper - 0.6 Mid - 0.6 Lower - 0.6 RA/EIA Ratio: 1.6 MAIN RENAL ARTERY VELOCITY: (cm/sec): 174.6 MAIN RENAL VEIN: Patent EXTERNAL ILIAC ARTERY VELOCITY (cm/sec): 108.1 * NORMAL DOPPLER FINDINGS Arcuate arteries - RI = 0.6 - 0.8 Renal artery = under 200 cm/sec Renal vein = May be monophasic with continuous flow or demonstrate some pulsatility with cardiac cycl e FINDINGS: TRANSPLANT KIDNEY: Normal cortical thickness and echotexture. No hydronephrosis, stone, or mass. No peritransplant flu id collection. Resistive indices are within the normal range URINARY BLADDER: Within normal limits given the degree of distension. CONCLUSION: 1. Normal transplant kidney Khang Ramirez MD on October 21, 2017 at 15:38 Board Certified Radiologist. This report was verified electronically.
[2017-10-22] MEDS ORDERED: PERC5TAB12 PO (02:58)
[2017-10-22] MEDS ORDERED: CLON0.2T PO (02:58)
--- NOTE | 2017-10-22 11:09 | EKG ---
Date Performed: 10/21/2017 Time Performed: 12:33:04 PTAGE: 42 years EKG: Sinus rhythm POSSIBLE LEFT ATRIAL ENLARGEMENT BORDERLINE ECG Since the prior tracing, there has been no significa nt change PREVIOUS TRACING : 06/17/2017 20.05 DOCTOR: Shen Rowan Interpretating Date/Time 10/22/2017 11:07:11
== END 2017-10-21 16:15 | disposition home or self-care (01) ==
LOC: NEPD 12:13
DX: L29.9 Pruritus, unspecified (principal); T63.481A Toxic effect of venom of other arthropod, accidental (unintentional), initial encounter; R94.31 Abnormal electrocardiogram [ECG] [EKG]; I10 Essential (primary) hypertension; Z94.0 Kidney transplant status
CPT/HCPCS: 71046; 76776; 80048; 82550; 82552; 84484; 85025; 93005; 96361; 96374; 96375; 99285; J1100; J1200; J7030

== ENCOUNTER 2017-10-21 23:03 | Emergency (ER) | payer OTHER ==
[~2017-10-21] VITALS: Ht 172.7 cm; Wt 100.0 kg
[~2017-10-21 23:03] MED LIST changes: +DIPH25CA PO; +FAMO1TAB73 PO
[2017-10-21 23:11] VITALS: BP 216/122; PULSE 114; RESP 20; TEMP 98.1; O2SAT 96
--- NOTE | 2017-10-22 00:12 | PD ---
HPI Chief Complaint: Cold / Flu Symptoms Time Seen by Provider: 00:07 Travel History International Travel<30 days: No Contact w/Intl Traveler<30days: No Traveled to known affect area: No History of Present Illness HPI 42-year-old male presents to the emergency department by private transportation for complaint of allergic reaction and severe sinus congestion. Patient states sinus congestion so severe it is causing him to have a severe headache. Patient states that he has history of hypertension and takes blood pressure medication but more recently has had some type of adverse/allergic reaction to an insect bite to his left calf approximately 5-6 days ago. Patient has no redness or swelling or induration urticarial changes at the site of the reported envenomation but presents today stating that he feels flushed and pleuritic to the anterior chest and face area. Patient also reports that he feels like he has congestion in the back of his throat and feels like his lips are mildly swollen. Patient was seen for exact same symptoms approximately 12 hours ago here in the emergency department and was treated with Pepcid and Benadryl as well as Decadron. 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 Patient is followed closely by Dr. Crow his concrete block layer who was involved in his care to consultation earlier in the day recommending an ultrasound which showed normal kidneys by transplant study also laboratory work was done which showed his renal function to be stable and his CK was elevated as it is reportedly chronically elevated. Patient was also given prescription at time of discharge for prednisone. Patient states that using Benadryl and his prednisone prescription has not provided him any sinus congestion relief. Patient has not noticed any urticaria denies any tongue swelling or posterior throat swelling. Also no report of chest pain palpitations shortness of breath wheezing near syncope syncope vomiting cramping abdominal pain or diarrhea. Patient is very upset because of the amount of sinus pain and congestion that he has. Patient repeatedly asked for pain medication to address his facial pain. 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 PFSH Past Medical History Arthritis: No Asthma: Yes (COLD INDUCED) Autoimmune Disease: No Blood Disorders: No Anxiety: Yes Depression: No Heart Rhythm Problems: No Cancer: Yes (LIVER) Cardiac Catheterization: Yes Cardiovascular Problems: Yes High Cholesterol: No Chemotherapy: No Chest Pain: No Congestive Heart Failure: No COPD: No Cerebrovascular Accident: No Diabetes: No Dialysis: Yes (Hemodialysis Hx ) Diminished Hearing: No Endocrine: No Gastrointestinal Disorders: Yes GERD: No Glaucoma: No Genitourinary: Yes Headaches: No Hepatitis: No Hiatal Hernia: No Hypertension: Yes Immune Disorder: No Kidney Stones: No Musculoskeletal: No Neurologic: Yes Psychiatric: Yes (CLAUSTRAPHOBIA) Reproductive: No Respiratory: Yes (bronchitis , PNEUMONIA 09/01/10) Immunizations Current: No Migraines: No Myocardial Infarction: No Radiation Therapy: No Renal Failure: Yes Seizures: No Sickle Cell Disease: No Sleep Apnea: No Thyroid Disease: No Ulcer: No Tetanus Vaccination: < 5 Years Influenza Vaccination: Yes Past Surgical History Abdominal Surgery: No Appendectomy: No Cardiac Surgery: Yes Cholecystectomy: No Ear Surgery: No Endocrine Surgery: No Eye Surgery: No Gynecologic Surgery: No Oral Surgery: Yes (T & A) Pacemaker: No Thoracic Surgery: No Tonsillectomy: Yes Other Surgery: Yes (LT SUBCLAVIAN ANGIOPLASTY PORT OCCLUSION) Social History Alcohol Use: Yes (ONCE A WEEK) Tobacco Use: No Substance Use: No Allergies-Medications (Allergen,Severity, Reaction): Coded Allergies: niacin (Unverified Allergy, Severe, Hives, 10/21/17) shellfish derived (Unverified Allergy, Severe, SOB, 10/21/17) bee venom protein (honey bee) (Unverified Allergy, Intermediate, Swelling , 10/21/17) codeine (Unverified Allergy, Unknown, Itching, 10/21/17) ITCH Uncoded Allergies: PT STS "HE CAN TAKE LORTAB" (Allergy, Mild, 05/01/09) Reported Meds & Prescriptions Reported Meds & Active Scripts Active Percocet (Oxycodone-Acetaminophen) 5-325 mg Tab 1 Tab PO Q6H PRN Clonidine (Clonidine HCl) 0.2 Mg Tab 0.2 Mg PO Q12HR PRN Diphenhydramine (Diphenhydramine HCl) 25 Mg Cap 25 Mg PO Q6H PRN Pepcid (Famotidine) 40 Mg Tab 40 Mg PO BID Oxycodone-Acetaminophen 10-325 mg Tab 1 Tab PO Q6H PRN Reported Amlodipine (Amlodipine Besylate) 10 Mg Tab 5 Mg PO DAILY Prednisone 5 Mg Tab 5 Mg PO DAILY Valsartan 320 Mg Tab 320 Mg PO DAILY Tacrolimus 1 Mg Cap 1 Mg PO BID Review of Systems Except as stated in HPI: all other systems reviewed are Neg General / Constitutional: No: Fever, Chills HENT: Positive: Congestion, No: Sore Throat Cardiovascular: No: Chest Pain or Discomfort, Palpitations, Diaphoresis Respiratory: No: Shortness of Breath Gastrointestinal: No: Nausea, Vomiting Genitourinary: No: Dysuria Musculoskeletal: No: Myalgias, Arthralgias Skin: Positive Rash, Positive Itching, No Hives Neurologic: No: Weakness, Dizziness Psychiatric: No: Anxiety Endocrine: No: Heat Intolerance Hematologic/Lymphatic: No: Easy Bruising Physical Exam Narrative GENERAL: Well-developed well-nourished male no acute respiratory distress no distress other than continues to complain about his nasal congestion. No stridor or hoarseness. SKIN: Warm and dry. HEAD: Normocephalic. EYES: No scleral icterus. No injection or drainage. ENT: Mucous membranes moist posterior pharynx no induration no erythema no edema; tongue no edema; no visible lip angioedema although patient reports sensation of lip swelling full or more swollen than normal. NECK: Supple, trachea midline. No JVD or lymphadenopathy. CARDIOVASCULAR: Regular rate and rhythm without murmurs, gallops, or rubs. RESPIRATORY: Breath sounds equal bilaterally. No accessory muscle use. GASTROINTESTINAL: Abdomen soft, non-tender, nondistended. MUSCULOSKELETAL: No cyanosis, or edema. BACK: Nontender without obvious deformity. No CVA tenderness. Data Data Last Documented VS Vital Signs Date Time Temp Pulse Resp B/P (MAP) Pulse Ox O2 Delivery O2 Flow Rate FiO2 10/22/17 04:16 77 20 165/86 (112) 96 10/22/17 02:53 Room Air 10/21/17 23:11 98.1 Orders Orders ^ Saline Lock (10/22/17 00:08) Complete Blood Count With Diff (10/22/17 00:08) Basic Metabolic Panel (Bmp) (10/22/17 00:08) Ckmb (Isoenzyme) Profile (10/22/17 00:08) Troponin I (10/22/17 00:08) Urinalysis - C+S If Indicated (10/22/17 00:08) Ondansetron Inj (Zofran Inj) (10/22/17 00:15) Morphine Inj (Morphine Inj) (10/22/17 00:15) Famotidine Inj (Pepcid Inj) (10/22/17 00:15) Sodium Chloride 0.9% Flush (Ns Flush) (10/22/17 00:15) CKMB (10/22/17 00:20) CKMB% (10/22/17 00:20) Clonidine (Catapres) (10/22/17 01:30) Ed Discharge Order (10/22/17 04:12) Labs Laboratory Tests Test 10/22/17 00:20 White Blood Count 11.5 TH/MM3 Red Blood Count 5.55 MIL/MM3 Hemoglobin 16.2 GM/DL Hematocrit 47.0 % Mean Corpuscular Volume 84.8 FL Mean Corpuscular Hemoglobin 29.2 PG Mean Corpuscular Hemoglobin Concent 34.5 % Red Cell Distribution Width 13.9 % Platelet Count 355 TH/MM3 Mean Platelet Volume 7.8 FL Neutrophils (%) (Auto) 89.3 % Lymphocytes (%) (Auto) 9.3 % Monocytes (%) (Auto) 1.1 % Eosinophils (%) (Auto) 0.0 % Basophils (%) (Auto) 0.3 % Neutrophils # (Auto) 10.2 TH/MM3 Lymphocytes # (Auto) 1.1 TH/MM3 Monocytes # (Auto) 0.1 TH/MM3 Eosinophils # (Auto) 0.0 TH/MM3 Basophils # (Auto) 0.0 TH/MM3 CBC Comment DIFF FINAL Differential Comment Urine Color LIGHT-YELLOW Urine Turbidity CLEAR Urine pH 6.0 Urine Specific Tower 1.006 Urine Protein 100 mg/dL Urine Glucose (UA) 70 mg/dL Urine Ketones NEG mg/dL Urine Occult Blood SMALL Urine Nitrite NEG Urine Bilirubin NEG Urine Urobilinogen LESS THAN 2.0 MG/DL Urine Leukocyte Esterase NEG Urine RBC 4 /hpf Urine WBC 1 /hpf Urine Bacteria RARE /hpf Microscopic Urinalysis Comment CULT NOT INDICATED Blood Urea Nitrogen 27 MG/DL Creatinine 2.33 MG/DL Random Glucose 202 MG/DL Calcium Level 8.7 MG/DL Sodium Level 133 MEQ/L Potassium Level 5.2 MEQ/L Chloride Level 102 MEQ/L Carbon Dioxide Level 24.5 MEQ/L Anion Gap 7 MEQ/L Estimat Glomerular Filtration Rate 31 ML/MIN Total Creatine Kinase 1061 U/L Creatine Kinase MB 5.5 NG/ML Creatine Kinase MB % 0.5 % Troponin I 0.04 NG/ML MDM Medical Decision Making Medical Screen Exam Complete: Yes Emergency Medical Condition: Yes Medical Record Reviewed: Yes Interpretation(s) CBC & BMP Diagram 10/22/17 00:20 Calcium Level 8.7 Vital Signs Date Time Temp Pulse Resp B/P (MAP) Pulse Ox O2 Delivery O2 Flow Rate FiO2 10/21/17 23:11 98.1 114 20 216/122 (153) 96 ck: 1061, elevated --decreased from earlier visit mb%0.5% not elevated; troponin I:0.04, not elevated and unchanged from 12 hours prior UA: protein noted, 4 rbcs small blood Differential Diagnosis Adverse medication reaction, uncontrolled hypertension, allergic sinusitis, chronic pain syndrome, renal failure, rhabdomyolysis, cephalgia Narrative Course 42-year-old male with 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 Patient with erythematous rash to upper chest and face and marked sinus congestion. Patient states he is unable to tolerate Afrin nasal decongestant spray cannot take Sudafed in view of his hypertensive history and is currently on Pepcid and Benadryl as antihistamines. The emergency department patient identified to have hypertension administer clonidine 0.2 mg as well as repeat collection of basic labs for comparison from 12 hours earlier today and call placed to patient's concrete block layer Dr. edie Crow suspects patient is taking too much testosterone supplementation to enhance his bodybuilding and recommends he decrease or discontinue testosterone use which is his best recommendation in order to avoid issues with possible renal failure with his transplant kidney. This was discussed with the patient in detail patient states he is willing to decrease the amount but that is all he will do and he will increase his fluid hydration. Is recommended patient have repeat lab test performed on Thursday and tacrolimus trough level checked After clonidine 0.2 mg p.o. blood pressure 175/95 which is approximately 20 5 drop in BP and near patient's reported "baseline" @ 4:14 BP: 165/86 Physician Communication Physician Communication patient and labs discussed with Dr Crow patient's concrete block layer and post renal transplant provider --patient to decrease testosterone use Diagnosis Primary Impression: Allergic sinusitis Additional Impressions: HTN (hypertension) Allergic to insect stings Referrals: Tej Crow MD call for appointment Patient Instructions: General Instructions Additional Instructions: repeat labs Thursday and tacrolimus trough increase fluid hydration clonidine 0.2 mg --take as blood pressure management supplement as needed as directed decrease testosterone use follow up with Dr Crow call office in the AM continue current medications as needed for allergic symptoms as previously instructed/prescribed may take pain medication as prescribed as needed for pain >6/10, otherwise recommend tylenol/acetaminophen Med/Other Pt SpecificInfo: Prescription(s) given Scripts Oxycodone-Acetaminophen (Percocet) 5-325 mg Tab 1 TAB PO Q6H Y for PAIN, #6 TAB 0 Refills Prov: Janina Villanueva MD 10/22/17 Clonidine (Clonidine) 0.2 Mg Tab 0.2 MG PO Q12HR Y for SBP>180, DBP>95, #3 TAB 0 Refills Prov: Janina Villanueva MD 10/22/17 Disposition: DISCHARGE HOME Condition: Stable Janina Villanueva MD Oct 22, 2017 00:12
[2017-10-22] MEDS ORDERED: MORPHINE SULFATE 2 MG/ML INJ IV PUSH ONE (00:15)
[2017-10-22] MEDS ORDERED: SODIUM CHLORIDE 0.9% FLUSH 10 ML FLUSH IV FLUSH PRN (00:15)
[2017-10-22] MEDS ORDERED: ONDANSETRON HCL 4 MG/2 ML VIAL IV PUSH ONE (00:15)
[2017-10-22] MEDS ORDERED: FAMOTIDINE 20 MG/2 ML VIAL IV PUSH ONE (00:15)
[2017-10-22 00:27] LABS: AUTOMATED NEUTROPHIL # 10.2 TH/MM3 (1.8-7.7); BASOPHIL % 0.3 % (0.0-2.0); HEMOGLOBIN 16.2 GM/DL (13.0-17.0); LYMPH % 9.3 % (9.0-44.0); LYMPHOCYTE # 1.1 TH/MM3 (1.0-4.8); MEAN CELL VOLUME 84.8 FL (80.0-100.0); MEAN CORPUSCULAR HEMOGLOBIN 29.2 PG (27.0-34.0); MEAN CORPUSCULAR HGB CONC 34.5 % (32.0-36.0); MEAN PLATELET VOLUME 7.8 FL (7.0-11.0); MONO % 1.1 % (0.0-8.0); MONOCYTE # 0.1 TH/MM3 (0-0.9); NEUT % 89.3 % (16.0-70.0); PLATELET COUNT 355 TH/MM3 (150-450); RED BLOOD COUNT 5.55 MIL/MM3 (4.50-5.90); RED CELL DISTRIBUTION WIDTH 13.9 % (11.6-17.2); WHITE BLOOD COUNT 11.5 TH/MM3 (4.0-11.0)
[2017-10-22 00:37] LABS: BACTERIA, URINE RARE /hpf; BILIRUBIN, URINE NEG (NEG); BLOOD, URINE SMALL (NEG); GLUCOSE,URINE 70 mg/dL (NEG); KETONE, URINE NEG (NEG); NITRITE,URINE NEG (NEG); URINE COLOR LIGHT-YELLOW (YELLW/STRAW); URINE LEUKOCYTE ESTERASE NEG (NEG)
[2017-10-22 00:46] LABS: BICARBONATE 24.5 MEQ/L (21.0-32.0); CALCIUM 8.7 MG/DL (8.5-10.1); CREATININE 2.33 MG/DL (0.60-1.30)
[2017-10-22 01:00] LABS: TROPONIN I 0.04 NG/ML (0.02-0.05)
[2017-10-22] MEDS ORDERED: cloNIDine HCL 0.2 MG TAB PO ONE (01:30)
[2017-10-22 02:53] VITALS: BP 175/95; PULSE 77; RESP 20; O2SAT 97
[2017-10-22] MEDS ORDERED: CLON0.2T PO (02:58)
[2017-10-22] MEDS ORDERED: PERC5TAB12 PO (02:58)
[2017-10-22 04:16] VITALS: BP 165/86
== END 2017-10-22 04:20 | disposition home or self-care (01) ==
LOC: NEPC 23:03
DX: J30.9 Allergic rhinitis, unspecified (principal); I10 Essential (primary) hypertension; T63.481A Toxic effect of venom of other arthropod, accidental (unintentional), initial encounter; Z94.0 Kidney transplant status
CPT/HCPCS: 80048; 81001; 82550; 82552; 84484; 85025; 96374; 96375; 99284; J2270; J2405